=== PATIENT | male | born 1990 | race Hispanic/Latino ===

== ENCOUNTER 2019-10-03 05:27 | Inpatient (IN) | payer BC ==
[2019-09-30 08:59] LABS: BASOPHILS % 0.6 % (0.0-1.0); EOSINOPHILS # (AUTO) 0.2 (0.0-0.4); EOSINOPHILS % 3.2 % (0.0-6.0); HEMATOCRIT 46.2 % (38.2-49.6); HEMOGLOBIN 15.9 g/dL (14.0-18.0); LYMPHOCYTES # (AUTO) 1.9 (1.0-3.2); LYMPHOCYTES % 28.5 % (18.0-39.1); MEAN CORPUSCULAR HEMOGLOBIN 29.9 pg (28-32); MEAN CORPUSCULAR HGB CONC 34.4 g/dL (31-35); MONOCYTES # (AUTO) 0.6 (0.2-0.8); MONOCYTES % 9.2 % (4.4-11.3); NEUTROPHILS # (AUTO) 3.8 (2.1-6.9); NEUTROPHILS % 58.3 % (38.7-80.0); PLATELET COUNT 293 x10e3/uL (140-360); RED BLOOD COUNT 5.31 x10e6/uL (4.3-5.7); RED CELL DISTRIBUTION WIDTH 12.1 % (11.7-14.4)
[~2019-10-03] VITALS: Ht 193 cm; Wt 181.4 kg
[2019-10-03] MEDS ORDERED: CEFAZOLIN SOD 1 GM/NS 50ML 100 ML IV ONE (06:01)
[2019-10-03] MEDS ORDERED: ACETAMINOPHEN 1000 MG/100 ML 100 ML IV ONE (06:58)
[2019-10-03] MEDS ORDERED: SCOPOLAMINE 1.5 MG PATCH ONE (06:59)
[2019-10-03] MEDS ORDERED: LIDOCAINE HCL (LTA) 4 ML SOLN ONE (06:59)
[2019-10-03] MEDS ORDERED: SUGAMMADEX SODIUM 200 MG/2 ML VIAL IV ONE (07:00)
[2019-10-03] MEDS ORDERED: BUPIVACAINE 0.25% 30ML SDV INJ ONE (07:09)
[2019-10-03] MEDS ORDERED: SCOPOLAMINE 1.5 MG PATCH TOP SCH (09:00)
[2019-10-03] MEDS ORDERED: FENTANYL CITRATE/PF 100MCG/2 ML INJ ONE ×3 (09:20→14:02)
[2019-10-03] MEDS ORDERED: PROMETHAZINE HCL (IM) 25 MG/ML VIAL ONE (09:47)
[2019-10-03] MEDS ORDERED: METOCLOPRAMIDE HCL 10 MG/2ML VIAL ONE (09:51)
[2019-10-03] MEDS ORDERED: MORPHINE SULFATE INJ 4 MG/ML INJ 1ML ONE (11:02)
--- NOTE | 2019-10-03 11:10 | NUR ---
Received patient from PACU s/p lap sleeve gastrectomy, settled in room, pains well managed, no distress at this time, will monitor. Call light within reach
[2019-10-03] MEDS: SODIUM CHLORIDE 0.9% 1000ML 1,000 ML IV SCH ×2 (11:38→19:59)
[2019-10-03] MEDS: ONDANSETRON HCL INJ 2MG/ML 2ML 2 MG/ML VIAL IV PRN ×3 (11:38→23:47)
[2019-10-03 11:39] VITALS: BP 153/98
[2019-10-03 11:42] VITALS: BP 153/98
--- NOTE | 2019-10-03 11:49 | NUR ---
Patient OOB and ambulated, had an episode of vomiting and medicated as per orders, back in bed, SCD's in place, will monitor.
[2019-10-03] MEDS ORDERED: SIMETHICONE 80 MG CHEW PO PRN (12:45)
[2019-10-03] MEDS ORDERED: MIDAZOLAM HCL 2 MG/2 ML VIAL ONE (14:02)
--- NOTE | 2019-10-03 15:12 | Operative Report ---
DATE OF PROCEDURE: 10/03/2019 SURGEON: Brody Lerma MD PREOPERATIVE DIAGNOSES: 1. Morbid obesity, BMI 49. 2. Obstructive sleep apnea, on CPAP. 3. Hypertension. POSTOPERATIVE DIAGNOSES: 1. Morbid obesity, BMI 49. 2. Obstructive sleep apnea, on CPAP. 3. Hypertension. PREOPERATIVE INDICATION: Treat disease, prevent complications related to comorbid conditions of obesity. PROCEDURES: Laparoscopic vertical sleeve gastrectomy. ANESTHESIA: General. BONE CHAR OPERATOR: Keshav Crowell, surgical 1st residential assistant (needed due to complexity of case). FLUIDS: 1 L of crystalloid. ESTIMATED BLOOD LOSS: 15 mL. DRAINS: None. COMPLICATIONS: None. SPECIMENS: Partial stomach. GRAFTS: None. FINDINGS: 1. Normal upper GI anatomy. 2. Negative intraoperative leak test. PROCEDURE IN DETAIL: The patient was brought to the operating room and was intubated under general endotracheal anesthesia. He was positioned supine with both arms abducted and all pressure points were appropriately padded. He was sterilely prepped and draped in the usual fashion. A preprocedure pause was performed identifying the patient, use of perioperative antibiotics, intended procedure, and staff surgeon. Access was gained to the peritoneal cavity via a 5 mm left subcostal incision using a Veress needle. The abdomen was insufflated. Four additional trocars were placed in the standard positions. The liver retractor was used to expose the stomach. The greater curvature of stomach was mobilized with the [place] LigaSure device from about 4 cm proximal to the pyloric valve to the left rommel of the diaphragm. Once the blood supply to the greater curvature was ligated, a 32-Sinhala bougie was placed along the lesser curvature of stomach, the greater curvature of stomach was resected with 5 firings of a 60 mm purple load Covidien stapling device. We then submerged the sleeve under saline and did intraoperative leak test. No leaks were identified. The specimen was removed through the right periumbilical port site. The port site was closed with 0 Vicryl suture using a Tarun Trujillo technique. We then verified hemostasis, removed the liver retractor and desufflated the abdomen. The trocars were removed. Incision sites were closed with 4-0 Monocryl suture in a subcuticular fashion. Dermabond dressings were applied. A 0.25% bupivacaine was used both at the preperitoneal incision sites. The patient tolerated the procedure well. Type of wound was type 2, clean, contaminated. MD JESUS Sommers/SHELLIE /[id number]
--- NOTE | 2019-10-03 15:17 | History and Physical ---
CHIEF COMPLAINT: "I had weight loss surgery." HISTORY OF PRESENT ILLNESS: This is a 29-year-old man, who was admitted to [facility] with a diagnosis of extreme obesity, BMI of 48 complicating underlying hypertension. The patient underwent successful laparoscopic sleeve gastrectomy today. The surgery was performed by Dr. Brody Lerma. The patient's main complaint is abdominal discomfort secondary to excessive gas pressure. The patient denies any belching or flatus. The patient states he has not had a bowel movement today. Otherwise, the patient is doing well. REVIEW OF SYSTEMS: GENERAL: Weight has been stable. No fever or chills. HEENT: No headaches. No visual changes. CARDIOVASCULAR/RESPIRATORY: No chest pain. No shortness of breath or cough. GI: Complains of abdominal discomfort secondary to excessive gas. Denies any belching or flatus. No bowel movement yet. No nausea or vomiting. : Lopez catheter removed. NEUROMUSCULAR: No limb weakness or numbness. PAST MEDICAL HISTORY: 1. Extreme obesity, BMI of 48. 2. Hypertension. HOME MEDICATIONS: None. ALLERGIES: NO KNOWN DRUG ALLERGIES. SURGICAL HISTORY: Laparoscopic sleeve gastrectomy today. FAMILY HISTORY: Father has hypertension and type 2 diabetes mellitus. SOCIAL HISTORY: He is , lives with his . He denies any tobacco use but drinks alcohol socially. 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 PHYSICAL EXAMINATION: GENERAL: He is awake, alert, and fluent. He is in no distress. He is very pleasant and cooperative. VITAL SIGNS: Height 6 feet 4 inches, weight is 400 pounds, BMI is 48. Blood pressure is 142/98, pulse 82, respiratory rate 18, and oxygen saturation 98% on room air, temperature 96.3. INTEGUMENT: Skin is warm and dry. No pallor, jaundice, or diaphoresis. HEENT: Anicteric sclerae. Moist mucous membranes. NECK: Supple. No evidence of jugular venous distention. CARDIOVASCULAR: Distant heart sounds. Regular rate and rhythm with a faint S4. LUNGS: No rales. No rhonchi or wheezes. ABDOMEN: Obese. No bowel sounds are auscultated, but all four surgical trocar sites are clean, dry and intact. EXTREMITIES: No edema or deformity. He is currently wearing sequential compression devices on his bilateral lower legs. NEUROLOGIC: Intact. DIAGNOSES: 1. Extreme obesity, BMI 48, complicating hypertension. 2. Status post laparoscopic sleeve gastrectomy today. 3. Hypertension. PLAN: 1. Monitor blood pressure. 2. Encourage incentive spirometer usage to prevent atelectasis. 3. Mobilize patient. 4. Oral simethicone with small sips of water for the patient's excessive gas pressure. 5. Intravenous fluids. 6. Start enoxaparin to prevent deep venous thrombosis. I spent 35 minutes in the care of the patient. I would like to thank Dr. Lerma for involving me in the care of this patient. MD COLETTE Bond/SHELLIE /[id number] MTDD
[2019-10-03] MEDS: MORPHINE SULFATE 2 MG/ML SYR 1ML IV PRN ×3 (15:38→23:48)
[2019-10-03 15:45] VITALS: BP 146/78
[2019-10-03] MEDS: SIMETHICONE 80 MG CHEW PO PRN (17:40)
--- NOTE | 2019-10-03 17:41 | NUR ---
Gas pains improved post simethicone, OOB and ambulating, medicated for pain, no more nausea and call light within reach, at bedside.
[2019-10-03] MEDS ORDERED: SEVOFLURANE INHAL SOLN 250 ML PEN BTL ONE (18:05)
[2019-10-03] MEDS ORDERED: DEXAMETHASONE SOD PHOS INJ 4 MG/ML VIAL ONE (18:05)
[2019-10-03] MEDS ORDERED: PROPOFOL IV EMULSION 10 MG/ML 20 ML VIAL ONE (18:05)
[2019-10-03] MEDS ORDERED: ONDANSETRON HCL INJ 2MG/ML 2ML 2 MG/ML VIAL ONE (18:05)
[2019-10-03] MEDS ORDERED: ROCURONIUM BROMIDE 10 MG/ML 5ML VIAL ONE (18:05)
[2019-10-03] MEDS ORDERED: LIDOCAINE HCL 2% LOCAL INJ 5 ML SDV VIAL INJ ONE (18:05)
--- NOTE | 2019-10-03 19:27 | NUR ---
Received bedside report from day nurse. Patient awake and sitting in chair, no s/s of distress at this time. All safety measures in place. Family at bedside. Will continue to monitor.
[2019-10-03] MEDS: ENOXAPARIN SOD INJ 40 MG/0.4 ML SYR SC SCH (19:59)
[2019-10-03 20:00] VITALS: BP 137/84
[2019-10-03 20:54] VITALS: BP 137/84
[2019-10-04] VITALS: BP 131/63
[2019-10-04] MEDS: SIMETHICONE 80 MG CHEW PO PRN ×2 (01:20→09:01)
[2019-10-04] MEDS: MORPHINE SULFATE 2 MG/ML SYR 1ML IV PRN (03:29)
[2019-10-04] MEDS: SODIUM CHLORIDE 0.9% 1000ML 1,000 ML IV SCH (03:33)
[2019-10-04 04:00] VITALS: BP 122/69
[2019-10-04 06:18] LABS: BASOPHILS % 0.2 % (0.0-1.0); EOSINOPHILS % 0.2 % (0.0-6.0); HEMATOCRIT 43.5 % (38.2-49.6); LYMPHOCYTES # (AUTO) 1.5 (1.0-3.2); LYMPHOCYTES % 12.4 % (18.0-39.1); MEAN CORPUSCULAR HEMOGLOBIN 29.9 pg (28-32); MEAN CORPUSCULAR HGB CONC 34.5 g/dL (31-35); MEAN CORPUSCULAR VOLUME 86.7 fL (81-99); MONOCYTES # (AUTO) 1.1 (0.2-0.8); MONOCYTES % 9.5 % (4.4-11.3); NEUTROPHILS # (AUTO) 9.2 (2.1-6.9); NEUTROPHILS % 77.4 % (38.7-80.0); PLATELET COUNT 297 x10e3/uL (140-360); RED BLOOD COUNT 5.02 x10e6/uL (4.3-5.7); RED CELL DISTRIBUTION WIDTH 12.2 % (11.7-14.4)
[2019-10-04 06:48] LABS: ALANINE AMINOTRANSFERASE 69 IU/L (0-55); ALBUMIN 3.7 g/dL (3.5-5.0); ALBUMIN/GLOBULIN RATIO 1.2 (0.8-2.0); ALKALINE PHOSPHATASE 64 IU/L (40-150); ANION GAP 10.1 mmol/L (8-16); BLOOD UREA NITROGEN 7 mg/dL (7-26); BUN/CREATININE RATIO 8 (6-25); CALCIUM 8.9 mg/dL (8.4-10.2); CARBON DIOXIDE 29 mmol/L (22-29); CHLORIDE 103 mmol/L (98-107); CREATININE, SERUM 0.85 mg/dL (0.72-1.25); EST GLOMERULAR FILTRATION RATE > 60 ML/MIN (60-); GLUCOSE 98 mg/dL (74-118); MAGNESIUM 1.9 MG/DL (1.3-2.1); PHOSPHORUS 3.6 MG/DL (2.3-4.7); POTASSIUM 4.1 mmol/L (3.5-5.1); SODIUM 138 mmol/L (136-145)
[2019-10-04] MEDS ORDERED: HYDROCODONE/APAP 7.5MG-325MG 1 EA TAB PO PRN (07:00)
--- NOTE | 2019-10-04 07:00 | NUR ---
bedside shift report received pt in stable condition, denies pain at this time, r hand 20g no ss of infiltration noted, 5 trochar sites to abdomen c/d/i, no other co voiced call light in reach will continue to monitor
--- NOTE | 2019-10-04 07:03 | NUR ---
Bedside report given to day nurse. Patient resting in bed, no s/s of distress at this time. All safety measures in place.
[2019-10-04 08:00] VITALS: BP 119/62
--- NOTE | 2019-10-04 08:17 | NUR ---
Progress Note S: No complaints O: af, vss General- no distress Abdomen- soft, incisions c/d/i A/P: POD 1, s/p lap sleeve gastrectomy -ambulate, IS, OOB to chair, clears -ok to dc home today -f/u in 2 weeks; discharge and diet instructions given
[2019-10-04] MEDS: ENOXAPARIN SOD INJ 40 MG/0.4 ML SYR SC SCH (09:01)
[2019-10-04] MEDS: ONDANSETRON HCL INJ 2MG/ML 2ML 2 MG/ML VIAL IV PRN (09:01)
[2019-10-04 09:02] VITALS: BP 122/69
--- NOTE | 2019-10-04 09:57 | Discharge Summary ---
ADMITTING DIAGNOSES: 1. Extreme obesity, BMI 48, complicated underlying hypertension. 2. Hypertensive heart disease. DISCHARGE DIAGNOSES: 1. Status post laparoscopic sleeve gastrectomy. 2. Extreme obesity, BMI 48, complicating underlying hypertension. 3. Hypertensive heart disease. HOSPITAL COURSE: This is a 29-year-old male, who was initially admitted to [facility] with diagnosis of extreme obesity, BMI, complicating underlying hypertension. During this hospitalization, the patient underwent laparoscopic sleeve gastrectomy, which he tolerated quite well. The patient also has diagnosis of hypertension as previous stated. The patient tolerated surgery quite well. His brief hospitalization was unremarkable. CONDITION ON DISCHARGE: Stable. DIET: On day of discharge, he was tolerating a clear liquid diet. His pain was well controlled. DISCHARGE MEDICATIONS: 1. Tylenol No. 3 (300/30) one tab every 6 hours p.r.n. pain, 20 prescribed. 2. Zofran 4 mg one pill every 6 hours p.r.n. nausea, 20 prescribed, no refills. FOLLOWUP INSTRUCTIONS: The patient is instructed to follow up with Dr. Haynes, his primary care doctor on Monday, October 07, 2019. The patient is instructed to follow up with Dr. Brody Lerma within 2 weeks. MD BEBE BondO/MARQUISEL /[id number] cc: MD Brody Rizo MD
[2019-10-04] MEDS ORDERED: ZOFRAN4 MG PO (11:21)
[2019-10-04] MEDS ORDERED: TYLENOL WITH C1 EACH PO (11:21)
[2019-10-04 12:00] VITALS: BP 134/83
--- NOTE | 2019-10-04 17:31 | NUR ---
RD received consult for bariatric diet education. Provided pt with information regarding gastric sleeve post surgery diet guidelines. Pt was not interested in verbal education at time of visit and stated he will read provided materials at a later time. Encouraged pt to contact RD if he has questions.
== END 2019-10-04 12:24 | disposition home or self-care (01) | DRG 621 ==
LOC: OR 05:27 → PACU V 09:30 → OBSVTOIN 09:30 → MED/SURG 11:11
PROVIDERS: ADMIT Internal Medicine; ATTEND Internal Medicine
PROC: 0DB64Z3 Excision of Stomach, Percutaneous Endoscopic Approach, Vertical (ICD-10-PCS; principal; 2019-10-03 07:30)
DX: E66.01 Morbid (severe) obesity due to excess calories (principal); Z68.42 Body mass index [BMI] 45.0-49.9, adult; I11.9 Hypertensive heart disease without heart failure; G47.33 Obstructive sleep apnea (adult) (pediatric)
CPT/HCPCS: 36415; 80053; 82948; 83735; 84100; 85025; 93005; J0690; J1100; J1650; J2001; J2250; J2270; J2405; J2550; J2765; J3010; J7030

== ENCOUNTER 2025-02-26 12:20 | Emergency (ER) | payer BC, OTHER ==
[~2025-02-26] VITALS: Ht 193 cm; Wt 117.0 kg
[~2025-02-26 12:20] MED LIST: TYLENOL WITH C1 EACH PO; ZOFRAN4 MG PO
[2025-02-26 12:33] VITALS: PULSE 66; RESP 17; TEMP 97.8; O2SAT 99
[2025-02-26] MEDS ORDERED: OFLOXACIN5 ML OP (12:47)
== END 2025-02-26 13:01 | disposition home or self-care (01) ==
LOC: FSED 12:43
DX: H10.9 Unspecified conjunctivitis (principal); Z98.84 Bariatric surgery status
CPT/HCPCS: 99282